=== PATIENT | female | born 1955 | race Caucasian/White ===

== ENCOUNTER 2024-12-26 19:49 | Emergency (ER) | payer MEDICARE, MEDICAID ==
[~2024-12-26] VITALS: Ht 152.4 cm; Wt 60.0 kg
[2024-12-26 19:58] VITALS: O2SAT 98
[2024-12-26] MEDS: ONDANSETRON HCL 4MG/2ML INJ IV ONE (20:53)
[2024-12-26] MEDS: SODIUM CHLORIDE 0.9% 1,000 ML IV ONE ×2 (20:53→23:10)
[2024-12-26 22:05] LABS: BASOPHILS % 0.7 % (0.0-2.0); EOSINOPHILS % 0.3 % (0.0-5.0); HEMATOCRIT. 41.1 % (36.0-48.0); HEMOGLOBIN. 13.4 g/dL (12.0-16.0); LYMPHOCYTES % 11.5 % (20.0-50.0); MEAN PLATELET VOLUME 9.7 fl (7.4-10.4); MONOCYTES % 4.6 % (2.0-8.0); NEUTROPHILS % 82.9 % (40.0-76.0); PLATELET 230 x1000/uL (130-400); RED BLOOD CELL COUNT 4.64 mill/uL (4.2-5.4); RED CELL DISTRIBUTION WIDTH 13.2 % (11.6-14.6)
[2024-12-26 22:25] LABS: CREATININE 0.8 mg/dL (0.6-1.0); UREA NITROGEN BLOOD 11 mg/dL (9-23)
[2024-12-26 22:26] LABS: TROPONIN I HIGH SENSITIVITY < 4 ng/L (3.0-34)
[2024-12-26 22:27] LABS: ASPARTATE AMINOTRANSFERASE 27 IU/L (<34)
[2024-12-26 22:28] LABS: BILIRUBIN DIRECT < 0.1 mg/dL (<=3.0); BILIRUBIN TOTAL 0.5 mg/dL (0.1-1.0); PROTEIN TOTAL 6.9 g/dL (6.0-8.3)
[2024-12-26] MEDS ORDERED: ONDA-239 PO (22:44)
[2024-12-26 23:11] VITALS: TEMP 36.5
[2024-12-27 00:01] VITALS: BP 122/51; PULSE 70; RESP 14; O2SAT 100
== END 2024-12-27 00:12 | disposition home or self-care (01) ==
LOC: ER 19:49 → CMPBEDREQ 12-27 07:34
DX: R11.2 Nausea with vomiting, unspecified (principal); Z88.2 Allergy status to sulfonamides; I67.82 Cerebral ischemia; Z79.899 Other long term (current) drug therapy
CPT/HCPCS: 80076; 80048; 83880; 83690; 83735; 85025; 84484; 36415; 70450; 74176; 96361; 96374; 99285; J2405; J7030; Z7610